=== PATIENT | male | born 1975 | race Caucasian/White ===

== ENCOUNTER 2017-09-09 13:29 | Emergency (ER) | payer BC ==
[~2017-09-09] VITALS: Ht 190.5 cm; Wt 109.1 kg
[~2017-09-09 13:29] MED LIST: MULTI-DAY VITA1 EACH
[2017-09-09 14:02] LABS: HEMATOCRIT 40.4 % (38.0-50.0); HEMOGLOBIN 14.6 G/DL (12.5-16.6); MCH 32.7 PG (29.0-34.0); MCHC 36.1 G/DL (30.0-36.0); MCV 90.6 FL (86-99); RBC DIS.WIDTH-CV 11.3 % (11.8-14.6); RBC DIS.WIDTH-SD 37.2 % (39-53); RED BLOOD COUNT 4.46 M/uL (4.00-5.50); WHITE BLOOD COUNT 3.2 K/uL (4.1-10.2)
[2017-09-09 14:10] LABS: ALBUMIN 4.3 g/dL (3.2-4.8)
[2017-09-09 14:11] LABS: CHLORIDE 104 mEq/L (99-109); POTASSIUM 3.9 mEq/L (3.7-5.4); SODIUM 139 mEq/L (136-147)
[2017-09-09 14:13] LABS: GLUCOSE 99 mg/dL (70-99); TOTAL PROTEIN 6.8 g/dL (6.4-8.3)
[2017-09-09 14:15] LABS: TOTAL BILIRUBIN 0.7 mg/dL (0.0-1.0)
[2017-09-09 14:16] LABS: ALKALINE PHOSPHATASE 57 IU/L (3-129)
[2017-09-09 14:17] LABS: CREATININE 0.9 mg/dL (0.6-1.3); GFR ESTIMATE (CALCULATED) > 59 mL/min/ (58.99-99999)
[2017-09-09 14:18] LABS: AST (GOT) 47 IU/L (2-34); UREA NITROGEN (BUN) 14 mg/dL (9-23)
[2017-09-09 14:20] LABS: ALT (GPT) 68 IU/L (3-49); LIPASE 41 U/L (1.0-51.0)
[2017-09-09 14:23] LABS: TROP-I INTERPRETATION NEGATIVE; TROPONIN-I < 0.01 ng/mL (0.0-0.30)
[2017-09-09 14:43] LABS: PLAT.SUFFICIENCY DECREASED; PLATELET COUNT 112 K/uL (156-360)
[2017-09-09 17:00] VITALS: BP 139/92
== END 2017-09-09 17:00 | disposition home or self-care (01) ==
LOC: EME 13:29
PROVIDERS: Emergency Medicine Emergency Medical Services
DX: R07.89 Other chest pain (principal); R42 Dizziness and giddiness; I10 Essential (primary) hypertension
CPT/HCPCS: 71046; 80053; 83690; 84484; 85027; 93005; 99281; 99284

== ENCOUNTER 2017-10-29 02:04 | Emergency (ER) | payer BC ==
[~2017-10-29] VITALS: Ht 190.5 cm; Wt 107.3 kg
[2017-10-29 05:39] VITALS: BP 164/108
== END 2017-10-29 05:40 | disposition home or self-care (01) ==
LOC: EME 02:04
DX: S86.811A Strain of other muscle(s) and tendon(s) at lower leg level, right leg, initial encounter (principal); Y93.64 Activity, baseball
CPT/HCPCS: 73610; 99281; 99284